=== PATIENT | female | born 1990 | race Caucasian/White ===

== ENCOUNTER 2017-05-30 15:13 | Emergency (ER) | payer MEDICAID ==
[~2017-05-30] VITALS: Ht 154.9 cm; Wt 115.2 kg
[2017-05-30 17:01] LABS: BASOPHIL % 0.3 % (0-2); PLATELET COUNT 341 x10^3mcL (130-400)
[2017-05-30 17:04] LABS: RED CELL DISTRIBUTION WIDTH 15.2 % (11.5-14.5)
[2017-05-30 17:07] LABS: CALCIUM 8.6 mg/dL (8.5-10.1); CARBON DIOXIDE 25.9 mmol/L (21-32); CHLORIDE SERUM 104 mmol/L (98-107); CREATININE SERUM 0.7 mg/dL (0.6-1.0); GFR1 > 60 mL/min; GLUCOSE SERUM 97 mg/dL (74-106); POTASSIUM SERUM 3.5 mmol/L (3.5-5.1); SODIUM SERUM 141 mmol/L (136-145)
[2017-05-30 17:11] LABS: ALBUMIN 3.9 g/dL (3.4-5.0); ALKALINE PHOSPHATASE 129 U/L (46-116); ALT/SGPT 82 U/L (14-59); AMYLASE 37 U/L (25-115); AST/SGOT 35 U/L (15-37); BILIRUBIN TOTAL 0.38 mg/dL (0.20-1.00); LIPASE 158 IU/L (73-393)
[2017-05-30 17:15] LABS: TOTAL PROTEIN, SERUM 8.3 g/dL (6.4-8.2)
[2017-05-30 17:22] LABS: FREE T4 1.28 ng/dL (0.76-1.46)
[2017-05-30 17:27] LABS: FREE THYROXINE INDEX 4.4 ug/dL (1.4-4.5); T4(THYROXINE) 13.7 ug/dL (4.7-13.3)
[2017-05-30 17:28] LABS: T3 TOTAL 1.22 ng/mL
[2017-05-30 17:38] LABS: microscopic required? YES; urine erythrocyte 3+ (NEGATIVE)
[2017-05-30 19:57] VITALS: BP 108/75
== END 2017-05-30 19:57 | disposition home or self-care (01) ==
LOC: ED 15:13
PROVIDERS: Emergency Medicine
DX: N93.8 Other specified abnormal uterine and vaginal bleeding (principal); N39.0 Urinary tract infection, site not specified; E66.9 Obesity, unspecified
CPT/HCPCS: 36415; 83880; 84439; 87046; 87046-59; Q0092

== ENCOUNTER 2017-11-12 15:58 | Emergency (ER) | payer MEDICAID ==
[~2017-11-12] VITALS: Ht 160 cm; Wt 120.7 kg
[2017-11-12 16:10] VITALS: Ht 160 cm; Wt 120.7 kg
[2017-11-12 17:45] VITALS: BP 124/76
== END 2017-11-12 17:45 | disposition home or self-care (01) ==
LOC: ED 15:58
DX: M72.2 Plantar fascial fibromatosis (principal)